=== PATIENT | male | born 1970 | race Hispanic/Latino ===

== ENCOUNTER 2020-12-28 06:10 | Day surgery (SDC) | payer BC ==
[2020-12-23 14:00] LABS: BASOPHILS % (AUTO) 0.3 % (0.0-5.0); HEMATOCRIT 43.7 % (36-48); LYMPHOCYTES % (AUTO) 28.7 % (21.0-51.0); MEAN CORPUSCULAR HGB CONC 34.3 g/dL (32.0-36.0); MEAN CORPUSCULAR VOLUME 84.4 fL (79-99); MONOCYTES % (AUTO) 5.2 % (3.0-13.0); NEUTROPHILS % (AUTO) 63.5 % (40.0-77.0); PLATELET COUNT (AUTO) 184 K/uL (130-400); RED BLOOD CELL COUNT(AUTO) 5.18 MIL/uL (4.00-5.50); RED CELL DISTRIBUTION WIDTH 12.6 % (11.0-15.5); WHITE BLOOD COUNT (AUTO) 9.1 K/uL (4.8-10.8)
[2020-12-23 14:09] LABS: POTASSIUM 3.5 mmol/L (3.5-5.1)
[2020-12-27 10:57] VITALS: BP 155/98
[2020-12-28] VITALS (16 sets, daily range): BP systolic 97–140; BP diastolic 65–92
[~2020-12-28] VITALS: Ht 170.2 cm; Wt 90.5 kg
[~2020-12-28 06:10] MED LIST: CEFAZOLIN SODIUM 100 GM IV SCH; TURM1TAB PO; VALS1TAB81 PO
[2020-12-28] MEDS ORDERED: LACTATED RINGERS 1000ML 1,000 ML IV ONE (07:23)
[2020-12-28] MEDS ORDERED: PROPOFOL 10 MG/ML 20ML VIAL IV ONE (07:37)
[2020-12-28] MEDS ORDERED: LIDOCAINE PF 100MG/5ML (2%) SYRINGE 5ML ONE (07:37)
[2020-12-28] MEDS ORDERED: DEXAMETHASONE SOD PHOSPHATE 10MG/ML 1ML VIAL ONE (07:37)
[2020-12-28] MEDS ORDERED: MIDAZOLAM HCL 1 MG/ML 2ML VIAL ONE ×2 (07:37→09:27)
[2020-12-28] MEDS ORDERED: ONDANSETRON 4MG INJ ONE (07:37)
[2020-12-28] MEDS ORDERED: FENTANYL CITRATE PF 50 MCG/1 ML 2ML VIAL ONE ×2 (07:38→10:14)
[2020-12-28] MEDS ORDERED: MEPERIDINE-PF 25 MG/ML SYG ONE (07:40)
[2020-12-28] MEDS: CEFAZOLIN SODIUM 1 GM VIAL ONE ×2 (08:06→09:45)
[2020-12-28] MEDS ORDERED: EPHEDRINE SULFATE 50 MG/ML AMPULE ONE (09:43)
[2020-12-28] MEDS ORDERED: KETOROLAC 30MG VIAL (30MG/ML) ONE (09:46)
[2020-12-28] MEDS ORDERED: ACET1TAB25 PO (10:48)
[2020-12-28] MEDS ORDERED: IBUP-2070 PO (10:48)
[2020-12-28] MEDS ORDERED: CEPH500B PO (10:48)
== END 2020-12-28 12:20 | disposition home or self-care (01) ==
LOC: DAH 06:10
PROVIDERS: ATTEND Orthopaedic Surgery
DX: M23.312 Other meniscus derangements, anterior horn of medial meniscus, left knee (principal); Z20.822 Contact with and (suspected) exposure to COVID-19; M23.007 Cystic meniscus, unspecified meniscus, left knee; M94.262 Chondromalacia, left knee; M17.32 Unilateral post-traumatic osteoarthritis, left knee; G89.29 Other chronic pain; I10 Essential (primary) hypertension; Z90.49 Acquired absence of other specified parts of digestive tract; Z98.890 Other specified postprocedural states
CPT/HCPCS: 29881; 36415; 80048; 85025; 87635; A4215; A4221; A4222; A4223; A4606 ×2; A4649 ×2; A4930; A5120; A6223; C9803; J0690; J1100; J1885; J2001; J2175; J2250 ×2; J2405; J2704; J3010 ×2; J3490; J7030; J7120 ×2